=== PATIENT | female | born 1975 | race Caucasian/White ===

== ENCOUNTER 2017-08-24 02:34 | Emergency (ER) | payer BC ==
[~2017-08-24] VITALS: Ht 170.2 cm; Wt 101.6 kg
[~2017-08-24 02:34] MED LIST: ACETAMINOPHEN-1 EAC1 PO; ATORVASTATIN CA40 MG PO; CLONIDINE HCL0.3 M3 PO; ELIMITE60 GM TP; FISH OIL 1,001000 M2 PO; GLUCOTROL5 MG PO; IBUPROFEN 800800 M1 PO; LEVAQUIN 500 M500 M2 PO; LISINOPRIL-HCT1 EAC2 PO; MEDROLDOSEPACK PO; NORCO 5-325 TA1 EACH PO; ONDANSETRON HCL4 M2 PO; PROAIR HFA8.5 GM INH; REGLAN 5 MG TAB5 MG PO; VALIUM5 MG PO; VITAMIN D3400 UNIT PO; VITAMIN E400 UNIT PO; XANAX 0.5 MG0.5 MG PO; ZOFRAN ODT4 MG PO; ZPAK PO
[2017-08-24] MEDS ORDERED: HYDROCODON-ACE1 EAC8 PO (03:58)
[2017-08-24 05:07] VITALS: BP 104/64
== END 2017-08-24 05:10 | disposition home or self-care (01) ==
LOC: M.ERS 02:34
DX: S52.691A Other fracture of lower end of right ulna, initial encounter for closed fracture (principal); I10 Essential (primary) hypertension; E11.43 Type 2 diabetes mellitus with diabetic autonomic (poly)neuropathy; K31.84 Gastroparesis; Z90.49 Acquired absence of other specified parts of digestive tract; Z90.710 Acquired absence of both cervix and uterus; Z85.3 Personal history of malignant neoplasm of breast; Z88.0 Allergy status to penicillin; Z88.2 Allergy status to sulfonamides; Z77.22 Contact with and (suspected) exposure to environmental tobacco smoke (acute) (chronic); Y04.8XXA Assault by other bodily force, initial encounter; Y93.89 Activity, other specified; Y92.89 Other specified places as the place of occurrence of the external cause; Y99.8 Other external cause status

== ENCOUNTER 2017-09-06 22:07 | Emergency (ER) | payer BC ==
[~2017-09-06] VITALS: Ht 170.2 cm; Wt 101.6 kg
[~2017-09-06 22:07] MED LIST changes: +HYDROCODON-ACE1 EAC8 PO
[2017-09-06 22:15] VITALS: BP 112/73
== END 2017-09-06 22:55 | disposition home or self-care (01) ==
LOC: M.ERS 22:07
DX: Z44.9 Encounter for fitting and adjustment of unspecified external prosthetic device (principal)

== ENCOUNTER → 2017-10-22 | Outpatient (CLI) | payer BC ==
[~2017-10-22] MED LIST changes: +BIOTIN1 MG; +NORCO 5-325 TA1 EAC1 PO
[2017-10-22 10:50] LABS: ALBUMIN 3.6 g/dL (3.4-5.0); CALCIUM 9.2 mg/dL (8.5-10.1); CREATININE 0.8 mg/dL (0.6-1.3); POTASSIUM 3.8 mmol/L (3.5-5.1); TOTAL BILIRUBIN 0.2 mg/dL (<0.1-1.0); TOTAL PROTEIN 7.3 g/dL (6.4-8.2)
[2017-10-22 19:11] LABS: eGFR IF AFRICAN AMERICAN 125 (>59)
[2017-10-23 14:08] LABS: C-PEPTIDE 13.5 ng/mL (1.1-4.4); PARATHYROID HORMONE 29 pg/mL (15-65)
== END ==
LOC: M.LAB 10:20
PROVIDERS: Orthopaedic Surgery
DX: S52.601A Unspecified fracture of lower end of right ulna, initial encounter for closed fracture (principal); R79.89 Other specified abnormal findings of blood chemistry; X58.XXXA Exposure to other specified factors, initial encounter; Y93.89 Activity, other specified; Y92.89 Other specified places as the place of occurrence of the external cause; Y99.8 Other external cause status

== ENCOUNTER 2017-12-09 18:56 | Emergency (ER) | payer BC ==
[~2017-12-09] VITALS: Ht 170.2 cm; Wt 97.1 kg
[~2017-12-09 18:56] MED LIST changes: -BIOTIN1 MG; -NORCO 5-325 TA1 EAC1 PO
[2017-12-09] MEDS ORDERED: GLUCOTROL5 MG PO (19:07)
[2017-12-09] MEDS ORDERED: FISH OIL 1,001000 M2 PO (19:08)
[2017-12-09] MEDS ORDERED: BIOTIN1 MG (19:08)
[2017-12-09] MEDS ORDERED: NORCO 5-325 TA1 EAC1 PO (19:37)
[2017-12-09 19:58] VITALS: BP 168/74
== END 2017-12-09 19:59 | disposition home or self-care (01) ==
LOC: M.ERS 18:56
DX: S62.617A Displaced fracture of proximal phalanx of left little finger, initial encounter for closed fracture (principal); S01.81XA Laceration without foreign body of other part of head, initial encounter; E11.9 Type 2 diabetes mellitus without complications; I10 Essential (primary) hypertension; E78.00 Pure hypercholesterolemia, unspecified; Z85.3 Personal history of malignant neoplasm of breast; Z90.710 Acquired absence of both cervix and uterus; Z88.0 Allergy status to penicillin; Z88.2 Allergy status to sulfonamides; W18.09XA Striking against other object with subsequent fall, initial encounter; Y93.89 Activity, other specified; Y92.89 Other specified places as the place of occurrence of the external cause; Y99.8 Other external cause status

== ENCOUNTER 2017-12-26 18:03 | Emergency (ER) | payer BC ==
[~2017-12-26] VITALS: Ht 170.2 cm; Wt 97.1 kg
[~2017-12-26 18:03] MED LIST changes: +BIOTIN1 MG; +NORCO 5-325 TA1 EAC1 PO
[2017-12-26] MEDS ORDERED: NORCO 5-325 TA1 EACH PO (19:29)
[2017-12-26 20:13] VITALS: BP 118/66
== END 2017-12-26 20:14 | disposition home or self-care (01) ==
LOC: M.ERS 18:03
DX: S93.492A Sprain of other ligament of left ankle, initial encounter (principal); E11.9 Type 2 diabetes mellitus without complications; I10 Essential (primary) hypertension; Z90.49 Acquired absence of other specified parts of digestive tract; Z90.710 Acquired absence of both cervix and uterus; Z85.3 Personal history of malignant neoplasm of breast; Z88.0 Allergy status to penicillin; Z77.22 Contact with and (suspected) exposure to environmental tobacco smoke (acute) (chronic); X58.XXXA Exposure to other specified factors, initial encounter; Y93.89 Activity, other specified; Y92.89 Other specified places as the place of occurrence of the external cause; Y99.8 Other external cause status

== ENCOUNTER → 2017-12-29 | Outpatient (CLI) | payer BC ==
[2017-12-29 10:52] LABS: HEMATOCRIT 41.9 % (37.0-47.0); HEMOGLOBIN 14.5 gm/dL (12.0-15.0); MCH 31.3 pg (26.0-34.0); MCHC 34.7 g/dL (28.0-37.0); MCV 90.1 fL (80.0-100.0); MPV 9.3 fl. (7.2-11.1); RBC 4.65 mil/uL (4.20-5.00)
[2017-12-29 10:56] LABS: ANION GAP 6 mmol/L (7-16); BUN 19 mg/dL (7-18); CALCIUM 9.7 mg/dL (8.5-10.1); CHLORIDE 102 mmol/L (98-107); CO2 31 mmol/L (21-32); CREATININE 1.1 mg/dL (0.6-1.3); GLUCOSE 102 mg/dL (70-99); POTASSIUM 4.2 mmol/L (3.5-5.1); SODIUM 139 mmol/L (136-145)
[2017-12-29 10:59] LABS: SERUM ASSESSMENT Clear
[2017-12-29 11:01] LABS: CHOLESTEROL 280 mg/dL (<200); HDL CHOLESTEROL 34 mg/dL (>40); LDL CHOLESTEROL 197 mg/dL (<100); TC:HDL 8.2 Ratio (Not establshd); TRIGLYCERIDE 249 mg/dL (<150); VLDL 50 mg/dL (<40)
[2017-12-30 03:08] LABS: GLYCOHEMOGLOBIN (HGB A1C) 5.3 % (4.8-5.6)
== END ==
LOC: M.LAB 10:22
PROVIDERS: Family Medicine
DX: E11.9 Type 2 diabetes mellitus without complications (principal); M81.0 Age-related osteoporosis without current pathological fracture; R53.83 Other fatigue; E55.9 Vitamin D deficiency, unspecified

== ENCOUNTER → 2018-01-05 | Outpatient (CLI) | payer BC | LOC: M.RAD 01-03 14:30 | DX: M81.0 Age-related osteoporosis without current pathological fracture (principal); E55.9 Vitamin D deficiency, unspecified; R42 Dizziness and giddiness; R53.83 Other fatigue; E11.9 Type 2 diabetes mellitus without complications; I10 Essential (primary) hypertension; Z78.0 Asymptomatic menopausal state ==

== ENCOUNTER 2018-07-09 18:11 | Emergency (ER) | payer OTHER ==
[~2018-07-09] VITALS: Ht 167.6 cm; Wt 97.1 kg
[2018-07-09] MEDS ORDERED: KEFLEX500 M1 PO (18:29)
[2018-07-09 18:43] VITALS: BP 128/72
== END 2018-07-09 18:39 | disposition home or self-care (01) ==
LOC: M.ERS 18:11
DX: K62.9 Disease of anus and rectum, unspecified (principal); E11.9 Type 2 diabetes mellitus without complications; I10 Essential (primary) hypertension; E78.00 Pure hypercholesterolemia, unspecified; Z85.3 Personal history of malignant neoplasm of breast; Z90.710 Acquired absence of both cervix and uterus; Z77.22 Contact with and (suspected) exposure to environmental tobacco smoke (acute) (chronic); Z88.0 Allergy status to penicillin; Z88.2 Allergy status to sulfonamides; Z88.8 Allergy status to other drugs, medicaments and biological substances

== ENCOUNTER 2018-10-11 20:08 | Emergency (ER) | payer OTHER ==
[~2018-10-11] VITALS: Ht 170.2 cm; Wt 97.1 kg
[~2018-10-11 20:08] MED LIST changes: +KEFLEX500 M1 PO
[2018-10-11] MEDS ORDERED: CLONIDINE HCL0.3 M3 PO (20:50)
[2018-10-11] MEDS ORDERED: LISINOPRIL-HCT1 EACH PO (20:50)
[2018-10-11 21:26] VITALS: BP 153/76
== END 2018-10-11 21:27 | disposition home or self-care (01) ==
LOC: M.ERS 20:08
DX: I10 Essential (primary) hypertension (principal); Z76.0 Encounter for issue of repeat prescription; E11.9 Type 2 diabetes mellitus without complications; E11.43 Type 2 diabetes mellitus with diabetic autonomic (poly)neuropathy; K31.84 Gastroparesis; K76.0 Fatty (change of) liver, not elsewhere classified; Z90.710 Acquired absence of both cervix and uterus; Z88.0 Allergy status to penicillin; Z88.1 Allergy status to other antibiotic agents; Z88.2 Allergy status to sulfonamides; Z77.22 Contact with and (suspected) exposure to environmental tobacco smoke (acute) (chronic)

== ENCOUNTER 2019-03-06 05:19 | Emergency (ER) | payer OTHER ==
[~2019-03-06] VITALS: Ht 170.2 cm; Wt 97.1 kg
[~2019-03-06 05:19] MED LIST changes: +LISINOPRIL-HCT1 EACH PO; +XANAX1 MG PO
[2019-03-06 05:23] VITALS: BP 95/39
[2019-03-06 05:41] LABS: ABSOLUTE BASOPHILS 0.1 thou/uL (0.0-0.2); ABSOLUTE EOSINOPHILS 0.1 thou/uL (0.0-0.7); ABSOLUTE LYMPHOCYTES 3.4 thou/uL (0.8-5.3); ABSOLUTE MONOCYTES 0.6 thou/uL (0.0-1.2); ABSOLUTE NEUTROPHILS 3.9 thou/uL (1.6-8.1); EOSINOPHILS 1.6 %; HEMATOCRIT 38.4 % (37.0-47.0); HEMOGLOBIN 13.2 gm/dL (12.0-15.0); LYMPHOCYTES 41.4 %; MCH 31.1 pg (26.0-34.0); MCHC 34.4 g/dL (28.0-37.0); MCV 90.4 fL (80.0-100.0); MONOCYTES 7.9 %; MPV 8.9 fl. (7.2-11.1); NUCLEATED RBCS 0 /100WBC; PLATELET COUNT* 243 thou/uL (150-400); POLYS 48.1 %; RBC 4.25 mil/uL (4.20-5.00); RDW-CV 13.6 % (10.5-14.5); WBC 8.2 thou/uL (4.0-11.0)
[2019-03-06 06:10] LABS: CALCIUM 8.7 mg/dL (8.5-10.1); CREATININE 1.6 mg/dL (0.6-1.3)
[2019-03-06 06:13] LABS: ALBUMIN 3.4 g/dL (3.4-5.0); TOTAL BILIRUBIN 0.5 mg/dL (<0.1-1.0); TOTAL PROTEIN 6.9 g/dL (6.4-8.2)
[2019-03-06 08:19] LABS: URINE BILIRUBIN NEGATIVE (Negative); URINE BLOOD NEGATIVE (Negative); URINE CLARITY CLEAR; URINE COLOR YELLOW; URINE GLUCOSE-RANDOM NEGATIVE (Negative); URINE KETONES NEGATIVE (Negative); URINE LEUKOCYTES-REFLEX NEGATIVE (Negative); URINE NITRITE-REFLEX NEGATIVE (Negative); URINE PROTEIN NEGATIVE (Negative); URINE UROBILINOGEN 0.2 E.U./dl (0.2-1.0)
[2019-03-06 08:27] LABS: AMP/METHAMP Negative (Negative); BARBITURATES Negative (Negative); BENZODIAZEPINES POSITIVE (Negative); COCAINE Negative (Negative); METHADONE Negative (Negative); OPIATES Negative (Negative); PCP Negative (Negative); THC POSITIVE (Negative)
--- NOTE | 2019-03-06 09:20 | NUR ---
PT VERBALIZES WANTING TO LEAVE AGAINST MEDICAL ADVICE STATING, "I HAVE A DOG AT HOME. I NEED TO GET BACK TO WORK." PT VERBALIZES UNDERSTANDING THAT SHE CAN BE SEEN AGAIN IF SYMPTOMS PERSIST OR WORSEN.
[2019-03-06 09:24] VITALS: BP 80/47
--- NOTE | 2019-03-07 14:54 | EKG ---
[place] [address] ELECTROCARDIOGRAM REPORT Name: JESSICA BECERRA Room: [facility]#: [id number] Admission: 03/06/19 Attend Phys: Discharge: 03/06/19 Date of : 77 Report #: [id number] THIS REPORT FOR: //name// [facility] ED Test Date: 2019-03-06 Test Time: 06:18:19 Pat Name: JESSICA BECERRA Department: Room: Gender: F Veneer Joiner: RUDOLPH : 1975 Requested By: Maryana Santizo Order Number: [id number] Reading MD: Bruno Noble Measurements Intervals [place] Rate: 45 P: 82 WV: 210 QRS: 35 QRSD: 86 T: 53 QT: 546 QTc: 473 Interpretive Statements Sinus bradycardia ST elev, probable normal early repol pattern Compared to ECG 01/08/2019 13:12:13 Sinus rate has decreased ST (T wave) deviation still present Electronically Signed On 03-07-2019 14:54:24 CDT by Bruno Noble [email or web address] <ELECTRONICALLY SIGNED> By: Bruno Noble MD, [facility] 03/07/19 1454 7 7 Bruno Noble MD, FAC /EPI
== END 2019-03-06 09:24 | disposition left against medical advice (07) ==
LOC: M.ERS 05:19 → M.TBA-ER 08:47 → M.ERS 09:24
PROVIDERS: Emergency Medicine
DX: I95.9 Hypotension, unspecified (principal); M54.5 Low back pain; I10 Essential (primary) hypertension; E11.9 Type 2 diabetes mellitus without complications; K76.0 Fatty (change of) liver, not elsewhere classified; E78.00 Pure hypercholesterolemia, unspecified; Z90.710 Acquired absence of both cervix and uterus; Z77.22 Contact with and (suspected) exposure to environmental tobacco smoke (acute) (chronic); Z88.2 Allergy status to sulfonamides; Z88.8 Allergy status to other drugs, medicaments and biological substances; Z88.0 Allergy status to penicillin; W01.0XXA Fall on same level from slipping, tripping and stumbling without subsequent striking against object, initial encounter; Y92.000 Kitchen of unspecified non-institutional (private) residence as the place of occurrence of the external cause; Y93.89 Activity, other specified; Y99.8 Other external cause status

== ENCOUNTER 2019-03-06 17:53 | Emergency (ER) | payer OTHER ==
[~2019-03-06] VITALS: Ht 170.2 cm; Wt 97.1 kg
[2019-03-06 17:58] VITALS: BP 124/79
== END 2019-03-06 18:29 | disposition left against medical advice (07) ==
LOC: M.ERS 17:53
DX: Z53.21 Procedure and treatment not carried out due to patient leaving prior to being seen by health care provider (principal)

== ENCOUNTER 2019-06-16 22:13 | Emergency (ER) | payer OTHER ==
[~2019-06-16] VITALS: Ht 170.2 cm; Wt 95.3 kg
[2019-06-16] MEDS ORDERED: TYLENOL WITH CO1 TA1 PO (23:16)
[2019-06-16 23:40] VITALS: BP 129/76
== END 2019-06-16 23:53 | disposition home or self-care (01) ==
LOC: M.ERS 22:13
DX: S93.492A Sprain of other ligament of left ankle, initial encounter (principal); E11.9 Type 2 diabetes mellitus without complications; I10 Essential (primary) hypertension; E78.00 Pure hypercholesterolemia, unspecified; F17.210 Nicotine dependence, cigarettes, uncomplicated; Z90.710 Acquired absence of both cervix and uterus; Z88.6 Allergy status to analgesic agent; Z88.5 Allergy status to narcotic agent; Z88.0 Allergy status to penicillin; Z88.2 Allergy status to sulfonamides; Z88.1 Allergy status to other antibiotic agents; W18.39XA Other fall on same level, initial encounter; Y93.89 Activity, other specified; Y92.89 Other specified places as the place of occurrence of the external cause; Y99.8 Other external cause status

== ENCOUNTER 2019-06-22 10:02 | Inpatient (IN) | payer OTHER ==
[~2019-06-22] VITALS: Ht 170.2 cm; Wt 95.3 kg
[~2019-06-22 10:02] MED LIST changes: +TYLENOL WITH CO1 TA1 PO
[2019-06-22 10:15] VITALS: BP 145/88
[2019-06-22 10:32] LABS: URINE BILIRUBIN NEGATIVE (Negative); URINE BLOOD NEGATIVE (Negative); URINE CLARITY CLEAR; URINE COLOR YELLOW; URINE GLUCOSE-RANDOM NEGATIVE (Negative); URINE KETONES NEGATIVE (Negative); URINE LEUKOCYTES-REFLEX NEGATIVE (Negative); URINE NITRITE-REFLEX NEGATIVE (Negative); URINE PROTEIN NEGATIVE (Negative); URINE UROBILINOGEN 0.2 E.U./dl (0.2-1.0)
[2019-06-22 10:47] LABS: ABSOLUTE BASOPHILS 0.1 thou/uL (0.0-0.2); ABSOLUTE EOSINOPHILS 0.1 thou/uL (0.0-0.7); ABSOLUTE MONOCYTES 0.7 thou/uL (0.0-1.2); ABSOLUTE NEUTROPHILS 5.2 thou/uL (1.6-8.1); EOSINOPHILS 1.7 %; HEMATOCRIT 40.3 % (37.0-47.0); HEMOGLOBIN 14.3 gm/dL (12.0-15.0); LYMPHOCYTES 24.8 %; MCH 31.2 pg (26.0-34.0); MCHC 35.5 g/dL (28.0-37.0); MCV 87.8 fL (80.0-100.0); MONOCYTES 8.1 %; NUCLEATED RBCS 0 /100WBC; PLATELET COUNT* 205 thou/uL (150-400); POLYS 64.4 %; RBC 4.59 mil/uL (4.20-5.00); WBC 8.1 thou/uL (4.0-11.0)
[2019-06-22 10:55] LABS: CALCIUM 9.1 mg/dL (8.5-10.1); CREATININE 0.9 mg/dL (0.6-1.3); POTASSIUM 4.1 mmol/L (3.5-5.1)
[2019-06-22 10:57] LABS: APTT 25.2 Seconds (25.0-31.3); PROTIME 9.9 Seconds (9.20-11.50)
[2019-06-22 10:59] LABS: ALBUMIN 3.8 g/dL (3.4-5.0); TOTAL BILIRUBIN 0.3 mg/dL (<0.1-1.0); TOTAL PROTEIN 7.8 g/dL (6.4-8.2)
[2019-06-22 14:04] VITALS: BP 187/96
--- NOTE | 2019-06-22 19:00 | NUR ---
PATIENT ADMITTED THIS AFTERNOON FOR ABDOMINAL PAIN, COLITIS. GI CONSULT DONE. POC REVIEWED W/ PATIENT. IV FLUIDS INFUSING W/O DIFF. PATIENT UP TO SHOWER W/ MIN SET UP ASST W/ MOM PRESENT IN RM. SEE AUG. HRLY ROUNDS DONE. MOM VISITING THIS AFTERNOON. CALL LIGHT IN REACH. RM DARKENED PER PATIENT REQUEST. ~TJRN
[2019-06-22 20:44] VITALS: BP 153/89
== END 2019-06-23 05:30 | disposition left against medical advice (07) | DRG 392 ==
LOC: M.ERS 10:02 → M.TBA-ER 13:26 → M.ORTHSURG 13:26
PROVIDERS: Nurse Practitioner Family; ADMIT Internal Medicine
DX: A09 Infectious gastroenteritis and colitis, unspecified (principal); I10 Essential (primary) hypertension; E78.00 Pure hypercholesterolemia, unspecified; F41.1 Generalized anxiety disorder; E11.43 Type 2 diabetes mellitus with diabetic autonomic (poly)neuropathy; K31.84 Gastroparesis; E78.5 Hyperlipidemia, unspecified; F17.210 Nicotine dependence, cigarettes, uncomplicated; Z85.3 Personal history of malignant neoplasm of breast; Z90.710 Acquired absence of both cervix and uterus; Z87.81 Personal history of (healed) traumatic fracture; Z88.6 Allergy status to analgesic agent; Z88.0 Allergy status to penicillin; Z88.2 Allergy status to sulfonamides; Z88.8 Allergy status to other drugs, medicaments and biological substances; Z53.29 Procedure and treatment not carried out because of patient's decision for other reasons

== ENCOUNTER 2019-09-08 03:08 | Emergency (ER) | payer OTHER ==
[~2019-09-08] VITALS: Ht 170.2 cm; Wt 95.3 kg
[2019-09-08] MEDS ORDERED: LIPITOR 20 MG T20 M1 PO (03:18)
[2019-09-08] MEDS ORDERED: CLONIDINE HCL0.2 M2 PO (03:19)
[2019-09-08] MEDS ORDERED: GLIPIZIDE 10 MG10 MG PO (03:19)
[2019-09-08] MEDS ORDERED: LISINOPRIL-HCT1 EACH PO (03:19)
[2019-09-08] MEDS ORDERED: VITAMIN D310 MC1 PO (03:20)
[2019-09-08 03:39] LABS: ABSOLUTE BASOPHILS 0.1 thou/uL (0.0-0.2); ABSOLUTE EOSINOPHILS 0.1 thou/uL (0.0-0.7); ABSOLUTE MONOCYTES 0.9 thou/uL (0.0-1.2); ABSOLUTE NEUTROPHILS 3.7 thou/uL (1.6-8.1); BASOPHILS 0.7 %; EOSINOPHILS 1.1 %; HEMATOCRIT 40.8 % (37.0-47.0); HEMOGLOBIN 14.3 gm/dL (12.0-15.0); LYMPHOCYTES 39.2 %; MCH 31.2 pg (26.0-34.0); MCHC 35.1 g/dL (28.0-37.0); MCV 88.8 fL (80.0-100.0); MONOCYTES 11.5 %; MPV 9.3 fl. (7.2-11.1); NUCLEATED RBCS 0 /100WBC; PLATELET COUNT* 204 thou/uL (150-400); POLYS 47.5 %; RBC 4.59 mil/uL (4.20-5.00); RDW-CV 13.1 % (10.5-14.5); WBC 7.7 thou/uL (4.0-11.0)
[2019-09-08 03:47] LABS: CALCIUM 8.8 mg/dL (8.5-10.1); CREATININE 0.9 mg/dL (0.6-1.3); POTASSIUM 3.3 mmol/L (3.5-5.1)
[2019-09-08 03:52] LABS: ALBUMIN 3.8 g/dL (3.4-5.0); TOTAL BILIRUBIN 0.4 mg/dL (<0.1-1.0); TOTAL PROTEIN 7.6 g/dL (6.4-8.2)
[2019-09-08 03:56] LABS: INFLUENZA A ANTIGEN Negative (Negative); INFLUENZA B ANTIGEN Negative (Negative)
[2019-09-08] MEDS ORDERED: ZOFRAN ODT4 MG DISSOLVE (04:46)
[2019-09-08 05:00] VITALS: BP 118/68
== END 2019-09-08 05:00 | disposition home or self-care (01) ==
LOC: M.ERS 03:08
PROVIDERS: Emergency Medicine Emergency Medical Services
DX: B34.9 Viral infection, unspecified (principal); I10 Essential (primary) hypertension; E78.00 Pure hypercholesterolemia, unspecified; E11.43 Type 2 diabetes mellitus with diabetic autonomic (poly)neuropathy; K31.84 Gastroparesis; F17.210 Nicotine dependence, cigarettes, uncomplicated; Z88.6 Allergy status to analgesic agent; Z88.5 Allergy status to narcotic agent; Z88.0 Allergy status to penicillin; Z88.2 Allergy status to sulfonamides

== ENCOUNTER 2020-04-05 00:39 | Emergency (ER) | payer OTHER ==
[~2020-04-05] VITALS: Ht 170.2 cm; Wt 96.2 kg
[~2020-04-05 00:39] MED LIST changes: +CLONIDINE HCL0.2 M2 PO; +GLIPIZIDE 10 MG10 MG PO; +LIPITOR 20 MG T20 M1 PO; +VITAMIN D310 MC1 PO; +ZOFRAN ODT4 MG DISSOLVE
[2020-04-05 00:45] VITALS: BP 152/83
[2020-04-05] MEDS ORDERED: TRIAMTERENE/HCT1 CA1 PO (00:50)
[2020-04-05] MEDS ORDERED: ZINC SULFATE220 MG PO (00:51)
[2020-04-05] MEDS ORDERED: TURMERIC500 M2 PO (00:51)
[2020-04-05] MEDS ORDERED: ZOLOFT50 M1 PO (00:51)
[2020-04-05] MEDS ORDERED: VITAMIN C500 M1 PO (00:51)
[2020-04-05] MEDS ORDERED: PROMETH-CODEIN 65 ML PO (01:22)
== END 2020-04-05 01:29 | disposition home or self-care (01) ==
LOC: M.ERS 00:39
DX: B34.9 Viral infection, unspecified (principal); Z20.828 Contact with and (suspected) exposure to other viral communicable diseases; I10 Essential (primary) hypertension; E11.9 Type 2 diabetes mellitus without complications; F17.210 Nicotine dependence, cigarettes, uncomplicated; Z90.710 Acquired absence of both cervix and uterus; Z79.899 Other long term (current) drug therapy; Z88.6 Allergy status to analgesic agent; Z88.0 Allergy status to penicillin; Z88.2 Allergy status to sulfonamides

== ENCOUNTER 2020-05-15 09:20 | Emergency (ER) | payer OTHER ==
[~2020-05-15] VITALS: Ht 170.2 cm; Wt 95.7 kg
[~2020-05-15 09:20] MED LIST changes: +PROMETH-CODEIN 65 ML PO; +TRIAMTERENE/HCT1 CA1 PO; +TURMERIC500 M2 PO; +VITAMIN C500 M1 PO; +ZINC SULFATE220 MG PO; +ZOLOFT50 M1 PO
[2020-05-15 09:42] VITALS: BP 139/77
[2020-05-15 10:59] LABS: ABSOLUTE EOSINOPHILS 0.1 thou/uL (0.0-0.7); ABSOLUTE LYMPHOCYTES 2.2 thou/uL (0.8-5.3); ABSOLUTE MONOCYTES 0.3 thou/uL (0.0-1.2); ABSOLUTE NEUTROPHILS 5.2 thou/uL (1.6-8.1); BASOPHILS 0.6 %; EOSINOPHILS 1.5 %; HEMATOCRIT 41.3 % (37.0-47.0); HEMOGLOBIN 14.4 gm/dL (12.0-15.0); LYMPHOCYTES 27.9 %; MCH 30.6 pg (26.0-34.0); MCHC 34.9 g/dL (28.0-37.0); MCV 87.8 fL (80.0-100.0); MONOCYTES 4.1 %; MPV 8.3 fl. (7.2-11.1); NUCLEATED RBCS 0 /100WBC; PLATELET COUNT* 210 thou/uL (150-400); POLYS 65.9 %; RBC 4.71 mil/uL (4.20-5.00); WBC 7.9 thou/uL (4.0-11.0)
[2020-05-15 11:08] LABS: CALCIUM 9.3 mg/dL (8.5-10.1); POTASSIUM 3.2 mmol/L (3.5-5.1)
[2020-05-15 11:15] LABS: URIC ACID* 8.7 mg/dL (2.6-7.2)
[2020-05-15] MEDS ORDERED: IBUPROFEN 800800 M1 PO (11:22)
[2020-05-15] MEDS ORDERED: ULTRAM50 MG PO (11:22)
== END 2020-05-15 11:20 | disposition home or self-care (01) ==
LOC: M.ERS 09:20
PROVIDERS: Emergency Medicine Emergency Medical Services
DX: M10.9 Gout, unspecified (principal); E11.9 Type 2 diabetes mellitus without complications; I10 Essential (primary) hypertension; E78.00 Pure hypercholesterolemia, unspecified; F17.210 Nicotine dependence, cigarettes, uncomplicated; Z98.84 Bariatric surgery status; Z79.899 Other long term (current) drug therapy; Z88.0 Allergy status to penicillin; Z88.2 Allergy status to sulfonamides; Z88.6 Allergy status to analgesic agent

== ENCOUNTER 2020-09-06 16:15 | Emergency (ER) | payer OTHER ==
[~2020-09-06] VITALS: Ht 170.2 cm; Wt 93.0 kg
[~2020-09-06 16:15] MED LIST changes: +ULTRAM50 MG PO
[2020-09-06 16:47] LABS: ABSOLUTE BASOPHILS 0.1 thou/uL (0.0-0.2); ABSOLUTE EOSINOPHILS 0.1 thou/uL (0.0-0.7); ABSOLUTE LYMPHOCYTES 2.6 thou/uL (0.8-5.3); ABSOLUTE MONOCYTES 0.4 thou/uL (0.0-1.2); ABSOLUTE NEUTROPHILS 4.3 thou/uL (1.6-8.1); BASOPHILS 1.1 %; EOSINOPHILS 0.8 %; HEMOGLOBIN 14.2 gm/dL (12.0-15.0); LYMPHOCYTES 34.5 %; MCH 30.4 pg (26.0-34.0); MCHC 33.9 g/dL (28.0-37.0); MCV 89.6 fL (80.0-100.0); MONOCYTES 5.5 %; MPV 9.1 fl. (7.2-11.1); NUCLEATED RBCS 0 /100WBC; PLATELET COUNT* 208 thou/uL (150-400); POLYS 58.1 %; RBC 4.69 mil/uL (4.20-5.00); RDW-CV 13.3 % (10.5-14.5); WBC 7.4 thou/uL (4.0-11.0)
[2020-09-06 16:55] LABS: CALCIUM 8.9 mg/dL (8.5-10.1); CREATININE 1.1 mg/dL (0.6-1.3); POTASSIUM 3.7 mmol/L (3.5-5.1)
[2020-09-06 16:59] LABS: ALBUMIN 4.1 g/dL (3.4-5.0); TOTAL BILIRUBIN 0.3 mg/dL (<0.1-1.0)
[2020-09-06 17:06] LABS: URINE BILIRUBIN NEGATIVE (Negative); URINE BLOOD NEGATIVE (Negative); URINE CLARITY CLEAR; URINE COLOR YELLOW; URINE GLUCOSE-RANDOM NEGATIVE (Negative); URINE KETONES NEGATIVE (Negative); URINE LEUKOCYTES-REFLEX NEGATIVE (Negative); URINE NITRITE-REFLEX NEGATIVE (Negative); URINE PROTEIN NEGATIVE (Negative); URINE SPECIFIC GRAVITY >= 1.030 (1.005-1.030); URINE UROBILINOGEN 0.2 E.U./dl (0.2-1.0)
[2020-09-06] MEDS ORDERED: LIPITOR 20 MG T20 M1 PO (18:42)
[2020-09-06] MEDS ORDERED: GLIPIZIDE ER5 MG PO (18:42)
[2020-09-06] MEDS ORDERED: ZOFRAN ODT4 MG DISSOLVE (18:44)
[2020-09-06] MEDS ORDERED: BENTYL 10 MG CA10 M1 PO (18:44)
[2020-09-06 19:02] VITALS: BP 153/70
== END 2020-09-06 19:03 | disposition home or self-care (01) ==
LOC: M.ERS 16:15
PROVIDERS: Emergency Medicine Emergency Medical Services
DX: R10.31 Right lower quadrant pain (principal); I10 Essential (primary) hypertension; E11.43 Type 2 diabetes mellitus with diabetic autonomic (poly)neuropathy; K31.84 Gastroparesis; E78.00 Pure hypercholesterolemia, unspecified; F17.210 Nicotine dependence, cigarettes, uncomplicated; Z88.6 Allergy status to analgesic agent; Z88.5 Allergy status to narcotic agent; Z88.0 Allergy status to penicillin; Z88.2 Allergy status to sulfonamides; Z88.1 Allergy status to other antibiotic agents; Z88.8 Allergy status to other drugs, medicaments and biological substances; Z90.710 Acquired absence of both cervix and uterus

== ENCOUNTER 2020-09-12 03:35 | Emergency (ER) | payer OTHER ==
[~2020-09-12] VITALS: Ht 170.2 cm; Wt 93.0 kg
[~2020-09-12 03:35] MED LIST changes: +BENTYL 10 MG CA10 M1 PO; +GLIPIZIDE ER5 MG PO
[2020-09-12] MEDS ORDERED: XANAX 1 MG TABLE1 MG PO (04:05)
[2020-09-12 04:10] VITALS: BP 179/99
== END 2020-09-12 04:10 | disposition home or self-care (01) ==
LOC: M.ERS 03:35
DX: F41.9 Anxiety disorder, unspecified (principal); Z76.0 Encounter for issue of repeat prescription; I10 Essential (primary) hypertension; E78.00 Pure hypercholesterolemia, unspecified; E11.43 Type 2 diabetes mellitus with diabetic autonomic (poly)neuropathy; F17.210 Nicotine dependence, cigarettes, uncomplicated; Z90.711 Acquired absence of uterus with remaining cervical stump; Z85.3 Personal history of malignant neoplasm of breast; Z79.899 Other long term (current) drug therapy; Z88.6 Allergy status to analgesic agent; Z88.0 Allergy status to penicillin; Z88.2 Allergy status to sulfonamides; Z88.8 Allergy status to other drugs, medicaments and biological substances

== ENCOUNTER 2020-11-12 01:59 | Emergency (ER) | payer OTHER ==
[~2020-11-12] VITALS: Ht 170.2 cm; Wt 90.7 kg
[~2020-11-12 01:59] MED LIST changes: +XANAX 1 MG TABLE1 MG PO
[2020-11-12] MEDS ORDERED: BACLOFEN20 MG PO (04:31)
[2020-11-12] MEDS ORDERED: HYDROXYZINE HCL25 M2 PO (04:31)
[2020-11-12 04:42] VITALS: BP 148/77
== END 2020-11-12 04:42 | disposition home or self-care (01) ==
LOC: M.ERS 01:59
DX: F19.939 Other psychoactive substance use, unspecified with withdrawal, unspecified (principal); I10 Essential (primary) hypertension; E78.00 Pure hypercholesterolemia, unspecified; E11.43 Type 2 diabetes mellitus with diabetic autonomic (poly)neuropathy; K31.84 Gastroparesis; F41.1 Generalized anxiety disorder; F17.210 Nicotine dependence, cigarettes, uncomplicated; Z85.3 Personal history of malignant neoplasm of breast; Z90.711 Acquired absence of uterus with remaining cervical stump; Z79.899 Other long term (current) drug therapy; Z88.6 Allergy status to analgesic agent; Z88.0 Allergy status to penicillin; Z88.8 Allergy status to other drugs, medicaments and biological substances